=== PATIENT | female | born 1995 | race Hispanic/Latino ===

== ENCOUNTER 2020-11-06 07:32 | Emergency (ER) | payer BC, SELFPAY ==
[2020-11-06] MEDS ORDERED: SODIUM CHLORIDE 0.9% (FLUSH) 10 ML SYG IV PRN (08:22)
[2020-11-06] MEDS ORDERED: SODIUM CHLORIDE 0.9% 1000ML 1,000 ML IVS ONE (08:22)
[2020-11-06] MEDS ORDERED: ONDANSETRON INJ 4 MG/2 ML VIAL IV ONE (08:22)
[2020-11-06] MEDS ORDERED: HYDROmorphone HCL INJ 2 MG/ML VIAL IV ONE (08:25)
--- NOTE | 2020-11-06 09:39 | ED.PDOC ---
History of Present Illness - General Chief Complaint: Abdominal Pain Stated Complaint: lower right abd pain, nausea, burping Time Seen by Provider: 11/06/20 07:53 Information Source: patient, RN notes reviewed, Vital Signs reviewed Exam Limitations: no limitations - History of Present Illness Initial Comments: Patient is a 25-year-old female who presents with complaints of right lower quadrant pain. This pain started last night and has worsened. It is throbbing/aching in nature. It is severe in intensity. It is constant and worsening. There is no radiation of the pain. Patient has not had a similar episode of this in the past. Patient does admit to having history of constipation. She uses a laxative about once a week. Patient denies any fever, chills, vomiting or diarrhea. She denies any constipation. She is had nausea. Patient also denies any headaches, dizziness, blurry vision, chest pain, shortness of breath or numbness or weakness. Abdominal Pain Onset Location: RLQ Pain Radiation: no radiation Quality: severe, aching, dull Timing/Duration: 7-24 hours, getting worse Improving Factors: nothing Worsening Factors: movement Associated Symptoms: nausea/vomiting - Nausea only Review of Systems - Review of Systems Constitutional: States: no symptoms reported, see HPI. Denies: chills, fever, malaise, weakness EENTM: States: no symptoms reported. Denies: eye pain, blurred vision, double vision Respiratory: States: no symptoms reported. Denies: cough, short of breath, stridor, wheezing Cardiology: States: no symptoms reported. Denies: chest pain, palpitations, syncope Gastrointestinal/Abdominal: States: see HPI, abdominal pain, nausea. Denies: constipation, diarrhea, vomiting Genitourinary: States: no symptoms reported. Denies: discharge, dysuria, frequency Musculoskeletal: States: no symptoms reported. Denies: back pain, joint pain, neck pain Skin: States: no symptoms reported. Denies: change in color, rash Neurological: States: no symptoms reported. Denies: headache, tingling, tremors, weakness Endocrine: States: no symptoms reported. Denies: increased hunger, increased thirst, increased urine Hematologic/Lymphatic: States: no symptoms reported. Denies: blood clots, easy bleeding All other Systems: Reviewed and Negative Past Medical History (General) - Patient Medical History Hx Seizures: No Hx Stroke: No Hx Dementia: No Hx Asthma: No Hx of COPD: No Hx Cardiac Disorders: No Hx Congestive Heart Failure: No Hx Pacemaker: No Hx Hypertension: No Hx Thyroid Disease: No Hx Diabetes: No Hx Gastroesophageal Reflux: No Hx Renal Disease: No Hx Cancer: No Hx of HIV: No Hx Hepatitis C: No Hx MRSA: No Surgical History: tonsillectomy - Vaccination History Hx Tetanus, Diphtheria Vaccination: No Hx Influenza Vaccination: No - Social History Hx Tobacco Use: No Hx Alcohol Use: Yes - quit - Female History Patient is a Female of Child Bearing Age (10 -59 yrs old): Yes Family Medical History - Family History Mother Family History: Unknown Living Status: Unknown Physical Exam - Physical Exam General Appearance: Alert, Anxious, Obvious distress, Well Developed, Well Groomed, Well Hydrated, Well Nourished Eyes, Ears, Nose, Throat Exam: PERRL/EOMI, normal ENT inspection, pharynx normal Neck: non-tender, full range of motion, supple, normal inspection Respiratory: chest non-tender, lungs clear, normal breath sounds, no respiratory distress, no accessory muscle use Cardiovascular/Chest: normal peripheral pulses, regular rate, rhythm, no edema, no gallop, no JVD, no murmur Peripheral Pulses: No deficit Gastrointestinal/Abdominal: normal bowel sounds, soft, tenderness - RLQ. +Rebound. 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 11/06/20 11:49 Patient is resting comfortably. Work-up is remarkable for a left ovarian cyst, complex in nature. I discussed this with the patient and she voices understanding and will follow up with her [employer]CH[employer]. Patient was aware that she did have a left ovarian cyst not that it was a complex cyst though. Lab work is unremarkable. CT does not show any appendicitis. It does show that she is got some constipation. Patient has laxative at home for constipation and she will start taking it today. Plan on discharge home at this time. Pal Lau M.D. #[id number] - Results/Orders Results/Orders: EXAM DESCRIPTION: Abdomen/Pelvis w/Contrast: Computed Tomography. CLINICAL HISTORY: 25 years Female RLQ pain COMPARISON: CT scan abdomen March 2013 TECHNIQUE: Spiral-axial scans at 5 x 5 mm intervals through the abdomen and pelvis, after nonionic IV contrast without oral contrast. Axial 2.5 mm reconstructions. Coronal and sagittal 2.0 mm reconstructions. No delayed scans. No adverse reactions. Total Exam DLP: 1332 mGy-cm. This exam was performed according to our departmental dose-optimization program which includes automated exposure control, adjustment of the mA and/or kV according to patient size and/or use of iterative reconstruction technique; to reduce radiation dose to as low as reasonably achievable (ALARA). FINDINGS: Lung bases and pleura: Negative. Liver, Stomach, Spleen, Adrenal Glands: Liver craniocaudal dimension 19.1 cm, similar size to the prior study. No focal lesions. Stomach and of the solid organs are negative.. Pancreas, Gallbladder, Ducts: Gallbladder visualized. Ducts and pancreas are negative. Kidneys and Ureters: Kidneys are unremarkable. Mass effect on the distal left ureter by pelvic mass (please see below.) Mesentery: No free air or free fluid or fatty stranding or other signs of inflammatory process. Aorta: Unremarkable. Small Bowel: Normal caliber. Distal fluid and distal fecalization. Terminal Ileum/Cecum: Mild distention of the cecum. Terminal ileum with minimal fecalization. Normal caliber of the appendix. No inflammatory changes. Colon: Distention of the ascending colon by fecal matter. Less fecal matter transverse colon with decompression descending colon and sigmoid colon. Sigmoid colon is moderately redundant. Gas in the rectum. Mass effect on the sigmoid colon from pelvic mass. Pelvic Organs: Complex mass in the midline slightly lateral to the midline with calcifications on the right lateral and superior aspect. Dimensions are 9.9 x 7.0 cm in the transverse plane and 8.5 cm craniocaudal. Also contains fluid and fatty elements. The main cystic component has Hounsfield density of -0.6.. No free fluid in the pelvis. Second structure more superior in the left adnexa measures 3.9 x 2.4 cm in the transverse plane, and 5.1 cm craniocaudal axis with eccentric cyst, measuring approximately 2 cm. No calcifications. The inferior aspect is abutting the pelvic mass. Minimal mass effect on the urinary bladder which is nondistended. No uterine calcifications; anteverted orientation, not enlarged. Spine and Bony Pelvis: Unremarkable. Abdominal Wall/Back Soft Tissues: Negative. IMPRESSION: 1. Complex adnexal pelvic mass measuring 9.9 x 3.5 x 7.0 cm with fatty elements, fluid, and calcification and mass effect on the sigmoid colon, uterus, urinary bladder, and small bowel. Possibly a teratoma or dermoid. Second adnexal mass superior to the left with maximum diameter 5.1 cm and containing a 2 cm cyst. No fluid in the cul-de-sac. These abnormalities were not present on the prior CT scan. Pelvic ultrasound follow-up recommended. 2. Normal CT appearance of the appendix. Cecum and ascending colon distended by moderate constipation. Minimal fecalization of the distal ileum and terminal ileum. No obstruction or air-fluid levels. 3. Mild hepatomegaly but no ascites. Hepatomegaly also seen on the prior CT scan from 2012. CRITICAL COMMUNICATION: The critical value was communicated directly by Dr. Faustin via phone call, with Dr. Lau, at approximately 830 hours, on November 06, 2020. Electronically signed by: Mukesh Faustin MD 11/06/2020 10:30 AM EXAM DESCRIPTION: Pelvic,Non-OB: Ultrasound. CLINICAL HISTORY: 25 years Female left ovarian mass COMPARISON: CT scan of the abdomen and pelvis on this visit. TECHNIQUE: Transcutaneous scanning through the urine filled bladder. Bejarano-scale and Doppler modes. FINDINGS: Uterus 11.2 x 5.9 x 4.1 cm cm. And 41.7 mL. Endometrium thickened-11 mm.. Myometrium heterogeneous. Uterus not retroverted. Cervix unremarkable.. Cul-de-sac: No fluid.. Right ovary 2.1 x 3.5 x 1.2 cm cm. 4.4 mL. Normal color Doppler vascularity. Small follicles but no cysts. No adnexal mass or free fluid. Left ovary 4.4 x 3.8 x 3.3 cm. 20.3 mL. Normal color Doppler vascularity. Small follicles but no cysts. No adnexal mass or free fluid. Cystic structure with wall thickening and heterogeneous wall appearance measuring 9.4 x 6.5 x 7.9 cm. No definite calcifications. Echogenic segments without shadowing may represent fat. Located superiorly abutting the left ovary, and could represent ovarian tissue. IMPRESSION: 1. Complex left adnexal cyst which may be part of the left ovary measuring approximately 9.5 cm with wall thickening and fatty component. No definite calcification, and no significant vascularity. No fluid in the left adnexa. CT appearance today could represent teratoma or dermoid. Radiology partner's Best Practice guidelines: 9.4 cm indeterminate ovarian cyst. Recommend follow-up NON-EMERGENT pelvic MRI with IV contrast or surgical evaluation. Reference: Radiology 2010 Jul;256(3):943-54 2. Right ovary unremarkable. No fluid in the right adnexa. Uterus enlarged with normal orientation. Borderline abnormal endometrial thickening. No definite uterine mass. No fluid in the cul-de-sac. Electronically signed by: Mukesh Faustin MD 11/06/2020 11:26 AM 11/06/20 08:22 Sodium Chloride 0.9% (Flush) [Saline Flush Syringe] 10 ml IV PRN PRN 11/06/20 08:24 Hold Metformin x 48Hrs [id number] 11/06/20 08:45 URINE CULTURE W/COLONY COUNT Stat Laboratory Results - last 24 hr 11/06/20 11/06/20 11/06/20 08:00 08:05 08:05 WBC 8.1 RBC 4.49 Hgb 14.7 Hct 41.7 MCV 92.8 MCH 32.7 H MCHC 35.3 RDW 12.9 Plt Count 212 MPV 8.9 Absolute Neuts (auto) 3.50 Absolute Lymphs (auto) 3.90 H Absolute Monos (auto) 0.60 Absolute Eos (auto) 0.10 Absolute Basos (auto) 0.10 Neutrophils % 42.8 Lymphocytes % 48.0 Monocytes % 7.4 Eosinophils % 1.1 Basophils % 0.7 Sodium Cancelled 137 Potassium Cancelled 3.8 Chloride Cancelled 103 Carbon Dioxide Cancelled 23 Anion Gap Cancelled 14.8 BUN Cancelled 14 Creatinine Cancelled 0.80 BUN/Creatinine Ratio Cancelled 17.5 Random Glucose Cancelled 93 Serum Osmolality Cancelled 274.0 L Calcium Cancelled 9.0 Total Bilirubin Cancelled 0.6 Direct Bilirubin 0.1 Indirect Bilirubin Cancelled AST Cancelled 28 ALT Cancelled 33 Alkaline Phosphatase Cancelled 43 Serum Total Protein Cancelled 8.0 Albumin Cancelled 4.4 Globulin 3.6 H Albumin/Globulin Ratio 1.2 Lipase 36 Serum HCG, Qual Urine Color Urine Appearance Urine pH Ur Specific Quinn Urine Protein Urine Glucose (UA) Urine Ketones Urine Blood Urine Nitrite Urine Bilirubin Urine Urobilinogen Ur Leukocyte Esterase Urine RBC Urine WBC Ur Epithelial Cells Amorphous Sediment Urine Bacteria Urine HCG, Qual 11/06/20 11/06/20 08:30 08:45 WBC RBC Hgb Hct MCV MCH MCHC RDW Plt Count MPV Absolute Neuts (auto) Absolute Lymphs (auto) Absolute Monos (auto) Absolute Eos (auto) Absolute Basos (auto) Neutrophils % Lymphocytes % Monocytes % Eosinophils % Basophils % Sodium Potassium Chloride Carbon Dioxide Anion Gap BUN Creatinine BUN/Creatinine Ratio Random Glucose Serum Osmolality Calcium Total Bilirubin Direct Bilirubin Indirect Bilirubin AST ALT Alkaline Phosphatase Serum Total Protein Albumin Globulin Albumin/Globulin Ratio Lipase Serum HCG, Qual Negative Urine Color Yellow Urine Appearance Clear Urine pH 7.5 Ur Specific Quinn 1.025 Urine Protein Negative Urine Glucose (UA) Negative Urine Ketones Negative Urine Blood Negative Urine Nitrite Negative Urine Bilirubin Negative Urine Urobilinogen 0.2 Ur Leukocyte Esterase Moderate H Urine RBC 1-3 Urine WBC 10-20 H Ur Epithelial Cells 10-20 Amorphous Sediment Trace Urine Bacteria 1+ Urine HCG, Qual Cancelled Vital Signs 11/06/20 07:50 Temperature 98.7 F Pulse Rate [ 90 Right Radial] Respiratory 18 Rate Blood Pressure 129/76 [Left Arm] O2 Sat by Pulse 96 Oximetry - EKG/XRAY/CT CT Ordered: Yes Departure - Departure Clinical Impression: Abdominal pain Qualifiers: Abdominal location: right lower quadrant Qualified Code(s): R10.31 - Right lower quadrant pain Ovarian cyst Qualifiers: Laterality: left Qualified Code(s): N83.202 - Unspecified ovarian cyst, left side Constipation Qualifiers: Constipation type: unspecified constipation type Qualified Code(s): K59.00 - Constipation, unspecified Time of Disposition: 11:52 Disposition: Discharge to Home or Self Care Condition: Good Departure Forms: ED Discharge - Pt. Copy, Patient Portal Self Enrollment Instructions: DI for Abdominal Pain-Adult, Acute Abdomen (Belly Pain), Adult (DC), Ovarian Cyst (DC), Constipation, Adult (DC) Diet: full liquid diet Activity: increase activity as tolerated Home Medications: Ambulatory Orders NK 11/06/20
--- NOTE | 2020-11-06 10:32 | CT ---
EXAM DESCRIPTION: Abdomen/Pelvis w/Contrast: Computed Tomography. CLINICAL HISTORY: 25 years Female RLQ pain COMPARISON: CT scan abdomen March 2013 TECHNIQUE: Spiral-axial scans at 5 x 5 mm intervals through the abdomen and pelvis, after nonionic IV contrast without oral contrast. Axial 2.5 mm reconstructions. Coronal and sagittal 2.0 mm reconstructions. No delayed scans. No adverse reactions. Total Exam DLP: 1332 mGy-cm. This exam was performed according to our departmental dose-optimization program which includes automated exposure control, adjustment of the mA and/or kV according to patient size and/or use of iterative reconstruction technique; to reduce radiation dose to as low as reasonably achievable (ALARA). FINDINGS: Lung bases and pleura: Negative. Liver, Stomach, Spleen, Adrenal Glands: Liver craniocaudal dimension 19.1 cm, similar size to the prior study. No focal lesions. Stomach and of the solid organs are negative.. Pancreas, Gallbladder, Ducts: Gallbladder visualized. Ducts and pancreas are negative. Kidneys and Ureters: Kidneys are unremarkable. Mass effect on the distal left ureter by pelvic mass (please see below.) Mesentery: No free air or free fluid or fatty stranding or other signs of inflammatory process. Aorta: Unremarkable. Small Bowel: Normal caliber. Distal fluid and distal fecalization. Terminal Ileum/Cecum: Mild distention of the cecum. Terminal ileum with minimal fecalization. Normal caliber of the appendix. No inflammatory changes. Colon: Distention of the ascending colon by fecal matter. Less fecal matter transverse colon with decompression descending colon and sigmoid colon. Sigmoid colon is moderately redundant. Gas in the rectum. Mass effect on the sigmoid colon from pelvic mass. Pelvic Organs: Complex mass in the midline slightly lateral to the midline with calcifications on the right lateral and superior aspect. Dimensions are 9.9 x 7.0 cm in the transverse plane and 8.5 cm craniocaudal. Also contains fluid and fatty elements. The main cystic component has Hounsfield density of -0.6.. No free fluid in the pelvis. Second structure more superior in the left adnexa measures 3.9 x 2.4 cm in the transverse plane, and 5.1 cm craniocaudal axis with eccentric cyst, measuring approximately 2 cm. No calcifications. The inferior aspect is abutting the pelvic mass. Minimal mass effect on the urinary bladder which is nondistended. No uterine calcifications; anteverted orientation, not enlarged. Spine and Bony Pelvis: Unremarkable. Abdominal Wall/Back Soft Tissues: Negative. IMPRESSION: 1. Complex adnexal pelvic mass measuring 9.9 x 3.5 x 7.0 cm with fatty elements, fluid, and calcification and mass effect on the sigmoid colon, uterus, urinary bladder, and small bowel. Possibly a teratoma or dermoid. Second adnexal mass superior to the left with maximum diameter 5.1 cm and containing a 2 cm cyst. No fluid in the cul-de-sac. These abnormalities were not present on the prior CT scan. Pelvic ultrasound follow-up recommended. 2. Normal CT appearance of the appendix. Cecum and ascending colon distended by moderate constipation. Minimal fecalization of the distal ileum and terminal ileum. No obstruction or air-fluid levels. 3. Mild hepatomegaly but no ascites. Hepatomegaly also seen on the prior CT scan from 2012. CRITICAL COMMUNICATION: The critical value was communicated directly by Dr. Faustin via phone call, with Dr. Lau, at approximately 830 hours, on November 06, 2020. Electronically signed by: Mukesh Faustin MD 11/06/2020 10:30 AM [facility]
--- NOTE | 2020-11-06 11:28 | US ---
EXAM DESCRIPTION: Pelvic,Non-OB: Ultrasound. CLINICAL HISTORY: 25 years Female left ovarian mass COMPARISON: CT scan of the abdomen and pelvis on this visit. TECHNIQUE: Transcutaneous scanning through the urine filled bladder. Bejarano-scale and Doppler modes. FINDINGS: Uterus 11.2 x 5.9 x 4.1 cm cm. And 41.7 mL. Endometrium thickened-11 mm.. Myometrium heterogeneous. Uterus not retroverted. Cervix unremarkable.. Cul-de-sac: No fluid.. Right ovary 2.1 x 3.5 x 1.2 cm cm. 4.4 mL. Normal color Doppler vascularity. Small follicles but no cysts. No adnexal mass or free fluid. Left ovary 4.4 x 3.8 x 3.3 cm. 20.3 mL. Normal color Doppler vascularity. Small follicles but no cysts. No adnexal mass or free fluid. Cystic structure with wall thickening and heterogeneous wall appearance measuring 9.4 x 6.5 x 7.9 cm. No definite calcifications. Echogenic segments without shadowing may represent fat. Located superiorly abutting the left ovary, and could represent ovarian tissue. IMPRESSION: 1. Complex left adnexal cyst which may be part of the left ovary measuring approximately 9.5 cm with wall thickening and fatty component. No definite calcification, and no significant vascularity. No fluid in the left adnexa. CT appearance today could represent teratoma or dermoid. Radiology partner's Best Practice guidelines: 9.4 cm indeterminate ovarian cyst. Recommend follow-up NON-EMERGENT pelvic MRI with IV contrast or surgical evaluation. Reference: Radiology 2010 Jul;256(3):943-54 2. Right ovary unremarkable. No fluid in the right adnexa. Uterus enlarged with normal orientation. Borderline abnormal endometrial thickening. No definite uterine mass. No fluid in the cul-de-sac. Electronically signed by: Mukesh Faustin MD 11/06/2020 11:26 AM [facility]
[2020-11-06 12:04] VITALS: BP 107/62; TEMP 98; O2SAT 98
== END 2020-11-06 11:55 | disposition home or self-care (01) ==
LOC: ER 07:32
DX: R10.31 Right lower quadrant pain (principal); K59.00 Constipation, unspecified; N83.202 Unspecified ovarian cyst, left side; R93.5 Abnormal findings on diagnostic imaging of other abdominal regions, including retroperitoneum
CPT/HCPCS: 36415; 74177; 76856; 80053; 81001; 82248; 83690; 84703; 85025; 87086; J1170; J2405; J7030